=== PATIENT | male | born 1990 | race Caucasian/White ===

== ENCOUNTER 2017-01-16 02:25 | Inpatient (IN) | payer MEDICARE, OTHER ==
--- NOTE | ~2017-01-16 | DS ---
Discharge Summary [facility] [address] [place]. [address] NAME: DOLORES SPRAGUE : 89 STATUS : DIS IN PAT#: [id number] AGE: 26 ADM/REG DATE : 01/16/17 MR#: [id number] REPORT SERV DATE: 01/19/17 DICTATED BY: JOSEFINA ROMERO DATE: 01/18/17 REPORT STATUS : Draft TRANSCRIBED BY: MODL DATE: 01/18/17 ADMISSION DATE: 01/16/2017 DISCHARGE DATE: 01/18/2017 DISCHARGE DIAGNOSES: 1. T3 osteolytic bone lesion. 2. Compression fracture. 3. Metastatic nodular sclerosing Hodgkin's lymphoma. 4. Pain due to T3 osteolytic bone lesion and compression fracture. 5. Constipation, resolved. IMAGIN. Chest x-ray, 01/16/2017. Impression: Mild postsurgical changes to the left lower lung and medial left apical bronchus and interval resolution of a left basilar consolidation, no new airspace disease. 2. CT-guided epidural injection, 01/18/2017. Impression: Technically successful right transforaminal epidural T2 through T3 under CT guidance with T3-T4 transforaminal epidural also performed. Trigger point bone, intraosseous pedicle and vertebral body injections were made. LABORATORY DATA: WBC is 11.9, hemoglobin 13.0, hematocrit 38.0, and platelet count 213. Sodium 138, potassium 4.9, chloride 102, CO2 is 25, BUN is 11, creatinine is 0.59, glucose is 118, and calcium is 9.3. CONSULTATION: Radiation Oncology, Dr. Ayo Shaw on 01/17/2017. HOSPITAL COURSE: Please refer to history and physical dictated by Dr. Bautista Darnell on 01/16/2017 for complete admission details as well as consultation note by Dr. Shaw. This patient is a 26-year-old patient who presented to [facility] Emergency Room with complaints of increased pain, stating that the pain was unbearable. The patient's pain was located in mid back, discomfort, unable to control pain at home with home medications. The patient was admitted to the hospital, imaging was obtained which as noted. The patient was a seen by Oncology, Dr. Smith. Nerve block was ordered. The patient underwent chest CT guided epidural on 01/18/2017. Post procedure patient did rate pain 3-4. The patient's Duragesic patch was increased from 100 mcg to 150 mcg during his hospital stay. No prescription for long-acting narcotic provided. The patient was provided a prescription for oxycodone 10 mg one to two every 4 hours as needed for pain, #24. The patient will re- evaluate his pain over the next [address] and discuss with Dr. Smith at that time. The patient was evaluated by Dr. Shaw, Radiation Oncology. The patient did agree to radiation, plan will be for the patient to complete three weeks of radiation, at that time he will be re-evaluated by Dr. Smith and discuss further treatment plans. DISCHARGE MEDICATIONS: 1. Colace 100 mg one p.o. twice daily p.r.n. for constipation. Discharge Summary [address] [address] NAME: DOLORES SPRAGUE : 89 STATUS : DIS IN PAT#: [id number] AGE: 26 ADM/REG DATE : 01/16/17 MR#: [id number] REPORT SERV DATE: 01/19/17 DICTATED BY: JOSEFINA ROMERO DATE: 01/18/17 REPORT STATUS : Draft TRANSCRIBED BY: ELIAS DATE: 01/18/17 2. Duragesic 150 mcg topical every 72 hours. 3. Zofran 8 mg one p.o. every 8 hours p.r.n. for pain. 4. Oxycodone 10 mg one or two every 4 hours p.r.n. for pain. This patient is being discharged home in hemodynamically stable condition, will follow up with Dr. Smith in three weeks. We will discuss at that time further treatment plan. This discharge took less than 30 minutes. DICTATED BY: DELFINA Esposito/ELIAS Josefina Romero NP / [id number] CC: Ace Vera M.D.
--- NOTE | ~2017-01-16 | HP ---
History And Physical [address] [place]. [address] NAME: DOLORES SPRAGUE : 89 STATUS : ADM [facility] PAT#: [id number] AGE: 26 ADM/REG DATE : 01/16/17 MR#: [id number] REPORT SERV DATE: 01/16/17 DICTATED BY: SYDNEY NAVA DATE: 01/16/17 REPORT STATUS : Draft TRANSCRIBED BY: ELIAS DATE: 01/16/17 DATE OF ADMISSION: 01/16/2017 CHIEF COMPLAINT: A 26-year-old male with recurrent nodular sclerosing Hodgkin's lymphoma. HISTORY OF PRESENTING ILLNESS: The patient's history was obtained through careful interview with the patient and mother, coupled with review of [facility] medical records. For about two or three weeks now, the patient has had progressive midback discomfort, but it has really progressed and on the night of admission, he felt that it was unbearable. He describes an upper back pain almost at the level of his lower neck, and it goes "up and down" his spine, a sharp quality, debilitating in severity that he describes as "25/10". No fevers or chills. No diaphoresis. No nausea or vomiting. No shortness of breath. No chest pain. No cough. He claims his weight has been stable. REVIEW OF SYSTEMS: Otherwise, a 14-point review of systems was obtained and was negative. PAST MEDICAL HISTORY: 1. Nodular sclerosing Hodgkin's lymphoma since 2010 at least considered stage IV, status post chemotherapy, radiation, and surgery; seen by Dr. Tae Smith and Dr. Shaw. 2. Stem cell transplant in 2012. 3. Pulmonary embolism in 2010. 4. Pericardial effusion. 5. Pneumonia. 6. Chronic pain management. 7. Oral HSV. 8. Anemia, thrombocytopenia. PAST SURGICAL HISTORY: 1. C1 fracture with surgery in 2014. 2. Lung resection in 2010. 3. Pericardial window in 2010. ALLERGIES: UNKNOWN AT THIS TIME. SOCIAL HISTORY: No tobacco abuse. Quit alcohol. Born in [place]. Lives with his mother. Lives in [place], [place]. FAMILY HISTORY: Mother and father are healthy. No family history known of cancer. CURRENT MEDICATIONS: Unknown, but we have requested medication list from pharmacy. History And Physical [address] [place]. [address] NAME: DOLORES SPRAGUE : [birth year] STATUS : ADM Watson PAT#: [id number] AGE: 26 ADM/REG DATE : 01/16/17 MR#: [id number] REPORT SERV DATE: 01/16/17 DICTATED BY: SYDNEY NAVA DATE: 01/16/17 REPORT STATUS : Draft TRANSCRIBED BY: MODL DATE: 01/16/17 PHYSICAL EXAMINATION: VITAL SIGNS: Temperature 98.8, pulse 67, blood pressure 121/88, respiratory rate 18, and O2 saturation 98% on room air. GENERAL: A very ill-appearing male, in evidence of extreme distress, screaming out in pain. HEENT: Pupils equal, round, and reactive to light. No conjunctival pallor. No scleral icterus. Nares are patent. Oropharynx is clear of obstruction. Dry mucous membranes. NECK: Trachea midline. No thyromegaly. LYMPH: No cervical lymphadenopathy. No supraclavicular lymphadenopathy. No inguinal lymphadenopathy. RESPIRATORY: Clear to auscultation at bases. No wheezes, rales, or rhonchi. Normal respiratory effort. CARDIOVASCULAR: Regular rate and rhythm. No murmurs, rubs, or gallops. No extremity edema is appreciated. ABDOMEN: Quite flat. Nontender. No hepatosplenomegaly. DERMATOLOGICAL: Warm and dry extremities. No pallor, no cyanosis. PSYCHIATRIC: An irritable affect and mood. Alert and oriented x3. LABORATORY DATA: White blood cell count 8.9, hemoglobin 12, hematocrit 37, platelets 200. Sodium 141, potassium 3.8, chloride 104, bicarb 28, BUN 8, creatinine 0.73, glucose 108. Liver enzymes within normal limits. STUDIES: 1. Chest x-ray by my own evaluation shows no acute cardiopulmonary process. 2. PET scan on 01/14/2017 shows a new T1 small lesion, a new 1 cm right hilar lymph node, and a large increasing T3 lytic bone mass with compression fracture. ASSESSMENT AND PLAN: 1. Metastatic nodular sclerosing Hodgkin's lymphoma. Consult Dr. Tae Smith, oncologist. 2. A T3 osteolytic bone lesion with compression fracture. The source of "25/10" pain. Place on IV MAPPING TECHNICIAN morphine. Consult Dr. Macdonald, Orthopedic Spine. Consult Dr. Shaw, radiation oncologist. 3. Chronic pain management. Place on MAPPING TECHNICIAN morphine and continue medicines that he takes chronically including a fentanyl patch. KPL/MODL Sydney Nava M.D. / [id number] History And Physical [address] [address] NAME: DOLORES SPRAGUE : 89 STATUS : ADM Watson PAT#: [id number] AGE: 26 ADM/REG DATE : 01/16/17 MR#: [id number] REPORT SERV DATE: 01/16/17 DICTATED BY: SYDNEY NAVA DATE: 01/16/17 REPORT STATUS : Draft TRANSCRIBED BY: ELIAS DATE: 01/16/17 CC: Benita Ventura D.O. Eric Ellis, M.D. Darrell Johnson, M.D.
--- NOTE | ~2017-01-16 | CONSULT ---
Radiation Oncology Consult [address] [address] NAME: PETE SPRAGUE : 89 STATUS : ADM IN [facility]#: [id number] AGE: 26 ADM/REG DATE : 01/16/17 MR#: [id number] REPORT SERV DATE: 01/17/17 DICTATED BY: SAKINA SHAW DATE: 01/17/17 REPORT STATUS : Draft TRANSCRIBED BY: ELIAS DATE: 01/17/17 RADIATION ONCOLOGY CONSULTATION HISTORY OF PRESENT ILLNESS: Mr. Sprague is a 26-year-old [facility] male with a six or seven year history of stage IVB Hodgkin disease. He has received multiple courses of palliative radiation therapy. He has most recently been Opdivo under Dr. Smith's care. He was admitted emergently with pain crisis describing 25/10 pain in his T-spine region. A PET scan was performed, which revealed a large increase in T3 lytic bone mass which has breached the spinal canal. In addition, there was a new T1 small lesion. Radiation Oncology has been consulted for further treatment and recommendations. Dr. Brad Macdonald, explosive ordnance specialist, has also been consulted. In consultation today, Ladans pain is better controlled with a FLEET ADMINISTRATOR pump though it tends to be excruciating at times. He has full neurologic function with good bowel and bladder habits. PAST MEDICAL HISTORY: As previously recorded. MEDICATIONS: See in MAR. PAST MEDICAL HISTORY: Significant for stem cell transplant in 2002, pulmonary embolism in 2010, pericardial effusion, pneumonia chronic pain management, surgery to C1 in 2014 for cord compression. He has undergone a pericardial window and lung resection in 2010, and radiation therapy. Details of his radiation therapy history are present in the radiation therapy treatment record. SOCIAL HISTORY: The patient was born in [facility]. He is accompanied by his father. He does not smoke. REVIEW OF SYSTEMS: A comprehensive review of systems was performed, which was negative except as mentioned in the HPI. PHYSICAL FINDINGS: GENERAL: Reveals a chronically ill-appearing young white male, in no apparent distress. LYMPHATICS: There is no obvious cervical or supraclavicular lymphadenopathy. Range of motion in the neck is extremely limited. NEUROLOGIC: The patient has full sensation to pinprick. He moves all extremities well. His gait was not tested. X-RAYS: PET scan of 01/14/2017 was reviewed in detail. The T3 mass involves nearly all the anterior components of the vertebral mass and breaches the spinal canal. IMPRESSION: Progression of stage IV Hodgkin disease with cord compression at the T3 level. RECOMMENDATIONS: I have been in touch with Dr. Gordon, the other radiation oncologist who has treated the patient. She was able to quantize the radiation that the T1 through T3 Radiation Oncology Consult [address] [place]. [address] NAME: PETE SPRAGUE : 89 STATUS : ADM IN PAT#: [id number] AGE: 26 ADM/REG DATE : 01/16/17 MR#: [id number] REPORT SERV DATE: 01/17/17 DICTATED BY: SAKINA SHAW DATE: 01/17/17 REPORT STATUS : Draft TRANSCRIBED BY: ELIAS DATE: 01/17/17 spine has received. The total dose is close to the cord tolerance. However, we can use IMRT which would treat the gross tumor volumes and limit any additional radiation to the cord to let to approximately 1000 cGy. This would be doable and very safe. I therefore recommended that we proceed with a palliative course of radiation therapy to T3 to help with pain relief and to prevent a clinical cord compression. I recommend 3000 cGy in 15 fractions giving 200 cGy per day. Radiation therapy treatment planning was performed today in anticipation of beginning treatment on Saturday morning, 01/18/2017. INFORMED CONSENT: The benefits, rationale, and possible complications of the proposed treatment were discussed. The worst side effect of radiation myelitis and paralysis were discussed. If we do not treat, then a paralysis from tumor encroachment would be eminent. Pete consents to treatment as described. NANCY/MODL Sakina Shaw M.D. / [id number] CC: Ace Vera M.D. NO Deysi Gonsales M.D.
[~2017-01-16 02:25] MED LIST: ACET500CAP PO; ACETSUP650 PR; ADVIL PO; AMOXIL875 PO; BACTRONASA NAS; BIST PO; DOXYCYCLINE; DURA75 TOP; ENTOCORT3 PO; HYDROMET1 ML PO; IRON PILL; LEVAQUIN5T PO; LEVAQUIN750 MG PO; LOTRIMIN-MYCELE15 GM TOP; MAX1 IV; MILK THISTLE PO; MIRALAXPKT PO; MSCONT100 PO; MSCONT60 PO; MSCONTIN PO; MYCELEX TROCHE10 MG PO; NAP375 PO; NEXIUM40 PO; NIVOLUMAB IV; OXECTA5 MG PO; OXYCOD PO; P10 PO; P5 PO; PCET PO; PEPTO BISMOL; PERCOCET1 TA4 PO; PR25 PO; REVLIMID25 MG PO; ROXICODONE15 MG PO; SENTAB PO; SEPTRA SUSPENSION PO; T PO; TESS PO; V5 PO; VALTREX5 PO; VIB100 PO; YERVOY IV; ZOFRAN8 PO; ZOVI200CAP PO; ZOVIRAX400 MG PO; [UNRECOGNIZED DRUG - OTHER] IV
[2017-01-16 04:33] LABS: BASOPHILS 0.2 %; BASOPHILS ABSOLUTE 0.02 10/3/uL (0.0-0.16); EOSINOPHILS 2.7 %; EOSINOPHILS ABSOLUTE 0.24 10/3/uL (0.0-0.53); HEMATOCRIT 37.1 % (40.0-51.0); HEMOGLOBIN 12.5 g/dL (13.6-17.8); IMMATURE GRANULOCYTES 0.2 %; IMMATURE GRANULOCYTES ABSOLUTE 0.02 10/3/uL (0.0-0.11); LYMPHOCYTES 9.6 %; LYMPHOCYTES ABSOLUTE 0.86 10/3/uL (0.67-4.30); MEAN CORPUS HGB CONC 33.7 g/dL (32.0-36.0); MEAN CORPUSCULAR HEMOGLOB 28.8 pg (26.0-34.0); MEAN CORPUSCULAR VOLUME 85.5 fL (80-100); MEAN PLATELET VOLUME 8.1 fL (9.2-13.0); MONOCYTES 5.9 %; MONOCYTES ABSOLUTE 0.53 10/3/uL (0.21-1.20); NEUTROPHILS 81.4 %; NEUTROPHILS ABSOLUTE 7.27 10/3/uL (2.02-8.40); PLATELET COUNT 200 10/3/uL (150-400); RBC DISTRIBUTION WIDTH 13.2 % (12.0-16.0); RED CELL COUNT 4.34 10/6/uL (4.7-6.1)
[2017-01-16 04:34] LABS: MANUAL DIFF NO %; WHITE BLOOD CELLS 8.9 10/3/uL (4.5-10.5)
[2017-01-16 04:42] LABS: INTERNATIONAL NORMAL RATI 1.1 UNITS (-); PARTIAL THROMBO TIME 35.5 SEC (22.5-37.2); PROTIME (NOT ORD) 13.6 SEC (12.0-14.5)
[2017-01-16 04:53] LABS: A/G RATIO 1.2 (0.7-1.9); ALBUMIN 4.1 G/DL (3.5-5.0); BUN (BLOOD UREA NITROGEN) 8 MG/DL (6-23); CALCIUM, SERUM 9.5 MG/DL (8.5-10.4); CHLORIDE, SERUM 104 MMOL/L (96-112); CO2 (CARBON DIOXIDE) 28 MMOL/L (24-34); CPK 59 U/L (0-200); CREATININE 0.73 MG/DL (0.70-1.30); GFR AFRICAN AMERICAN 149 ML/MIN (>=60); GFR NON AFRICAN AMERICAN 129 ML/MIN (>=60); GLOBULIN 3.5 G/DL (2.5-4.1); POTASSIUM, SERUM 3.8 MMOL/L (3.5-5.3); SGPT(ALT) 13 U/L (5-65); SODIUM, SERUM 141 MMOL/L (135-148); TOTAL BILIRUBIN 0.6 MG/DL (0-1.2); TOTAL PROTEIN 7.6 G/DL (6.0-8.5)
[2017-01-16 04:54] LABS: ALKALINE PHOSPHATASE 140 U/L (45-117); GLUCOSE, SERUM 108 MG/DL (60-99); SGOT(AST) 13 U/L (5-40)
[2017-01-16] MEDS ORDERED: ROXICODONE30 MG PO (11:07)
[2017-01-16] MEDS ORDERED: DURA25 TOP (11:07)
[2017-01-16] MEDS ORDERED: ZOFRAN8 PO (11:07)
[2017-01-16] MEDS ORDERED: NEXIUM40 PO (11:08)
[2017-01-16] MEDS ORDERED: DURA75 TOP (11:08)
[2017-01-17 04:25] LABS: BASOPHILS 0.2 %; BASOPHILS ABSOLUTE 0.02 10/3/uL (0.0-0.16); EOSINOPHILS 0.1 %; EOSINOPHILS ABSOLUTE 0.01 10/3/uL (0.0-0.53); IMMATURE GRANULOCYTES 1.1 %; IMMATURE GRANULOCYTES ABSOLUTE 0.13 10/3/uL (0.0-0.11); LYMPHOCYTES 10.2 %; LYMPHOCYTES ABSOLUTE 1.22 10/3/uL (0.67-4.30); MEAN CORPUS HGB CONC 34.2 g/dL (32.0-36.0); MEAN CORPUSCULAR HEMOGLOB 28.6 pg (26.0-34.0); MEAN CORPUSCULAR VOLUME 83.7 fL (80-100); MEAN PLATELET VOLUME 8.8 fL (9.2-13.0); MONOCYTES 4.4 %; MONOCYTES ABSOLUTE 0.53 10/3/uL (0.21-1.20); NEUTROPHILS ABSOLUTE 10.02 10/3/uL (2.02-8.40); PLATELET COUNT 213 10/3/uL (150-400); RBC DISTRIBUTION WIDTH 13.1 % (12.0-16.0); RED CELL COUNT 4.54 10/6/uL (4.7-6.1); WHITE BLOOD CELLS 11.9 10/3/uL (4.5-10.5)
[2017-01-17 04:31] LABS: MANUAL DIFF NO %
[2017-01-17 04:51] LABS: BUN (BLOOD UREA NITROGEN) 11 MG/DL (6-23); CALCIUM, SERUM 9.3 MG/DL (8.5-10.4); CHLORIDE, SERUM 102 MMOL/L (96-112); CO2 (CARBON DIOXIDE) 25 MMOL/L (24-34); CREATININE 0.59 MG/DL (0.70-1.30); GFR AFRICAN AMERICAN 163 ML/MIN (>=60); GFR NON AFRICAN AMERICAN 141 ML/MIN (>=60); GLUCOSE, SERUM 118 MG/DL (60-99); SODIUM, SERUM 138 MMOL/L (135-148)
[2017-01-17 04:54] LABS: POTASSIUM, SERUM 4.9 MMOL/L (3.5-5.3)
[2017-01-18] MEDS ORDERED: OXYCOD PO (18:05)
[2017-01-18] MEDS ORDERED: DSS PO (18:06)
[2017-01-18] MEDS ORDERED: DURA100 TOP (18:11)
[2017-01-18] MEDS ORDERED: DURA75 TOP (18:12)
== END 2017-01-18 19:08 | disposition home or self-care (01) | DRG 543 ==
LOC: 4EA 02:25
PROVIDERS: Internal Medicine; Nurse Practitioner Adult Health
PROC: 3E0S3CZ (ICD-10-PCS; principal; 2017-01-18)
DX: C79.51 Secondary malignant neoplasm of bone (principal); M84.48XA Pathological fracture, other site, initial encounter for fracture; C81.10 Nodular sclerosis Hodgkin lymphoma, unspecified site
CPT/HCPCS: 64490; 71010; 77012; 77300; 77301; 77338; 77386; 78815; 80048; 80053; 82550; 85025; 85610; 85730; A9270-GY; A9552; C9113; J1170; J1200; J2250; J2270; J3010